=== PATIENT | male | born 1960 | race Caucasian/White ===

== ENCOUNTER 2017-01-26 16:12 | Emergency (ER) | payer MEDICARE, OTHER ==
[2017-01-26 16:31] VITALS: TEMP 98.9
--- NOTE | 2017-01-26 17:00 | ED ---
Lower Extremity Injury HPI - General Chief Complaint: Extremity Injury, Lower Stated Complaint: Ankle Pain, swollen Time Seen by Provider: 01/26/17 16:55 Source: patient, RN notes reviewed Mode of arrival: wheelchair Limitations: no limitations - History of Present Illness Initial Comments: 56-year-old male presents emergency Department chief complaint of right foot and ankle injury. Patient states that he went to the pool and irrigated it can a ball and landed onto his right foot. Patient states since he has pain. Patient states there is no other injuries. Patient denies any fever chills cough cold runny nose with this. Patient states she did not hit his head. Patient states he continued to have the pain to the foot so he thought that he should be evaluated. Patient denies any other symptoms at this time. Patient denies any recent fever, chills, shortness of breath, chest pain, back pain, abdominal pain, nausea vomiting, numbness or tingling, dysuria or hematuria, constipation or diarrhea, headaches or visual changes, or any other current symptoms. - Related Data Home Medications Medication Instructions Recorded Confirmed Aspirin 325 mg PO DAILY 05/09/16 06/04/16 Atorvastatin [Lipitor] 80 mg PO HS 05/09/16 06/06/16 Cholecalciferol [Vitamin D3] 5,000 unit PO DAILY 05/09/16 06/04/16 Krill Oil 500 mg PO DAILY 05/09/16 06/04/16 Lisinopril [Lisinopril] 10 mg PO QAM 05/09/16 06/04/16 Metoprolol Tartrate [Metoprolol 25 mg PO BID 05/09/16 06/06/16 Tartrate] Omeprazole 20 mg PO QAM 05/09/16 06/06/16 Prasugrel HCl [Effient] 10 mg PO DAILY 05/09/16 06/04/16 Vitamin B Complex 1 cap PO DAILY 05/09/16 06/04/16 glyBURIDE [Glyburide] 5 mg PO AC-[id number] 05/09/16 06/06/16 metFORMIN HCL [metFORMIN HCL] 1,000 mg PO DAILY 05/09/16 06/06/16 Previous Rx's Medication Instructions Recorded traMADol HCL [Ultram] 50 mg PO Q4HR PRN #8 tab 06/06/16 Allergies Allergy/AdvReac Type Severity Reaction Status Date / Time No Known Allergies Allergy Verified 06/04/16 15:14 Review of Systems ROS Statement: Those systems with pertinent positive or pertinent negative responses have been documented in the HPI. ROS Other: All systems not noted in ROS Statement are negative. 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 Neck: The neck is supple, there is no tenderness. Cardiovascular: There is a regular rate and rhythm. No murmur, rub or gallop is appreciated. Respiratory: Lungs are clear to auscultation, respirations are non-labored, breath sounds are equal. No wheezes, stridor, rales, or rhonchi. Musculoskeletal: Sensation intact with 2+ pulses. Extremity. Range of motion right knee and right ankle. Patient does appear to have some tenderness with patient the right ankle and along the posterior aspect of the right foot. There is minimal swelling noted and no ecchymosis or abrasion no skin trauma. Full range of motion of the right knee with no proximal tib-fib tenderness. Back: There is no midline tenderness to palpation. Full range of motion. Neurological: CN II-XII intact, There are no obvious motor or sensory deficits. Coordination appears grossly intact. Speech is normal. Skin: Skin is warm and dry and no rashes or lesions are noted. Psychiatric: Normal mood and affect. Limitations: no limitations Course Vital Signs 01/26/17 16:29 Temperature 98.9 F Pulse Rate 90 Respiratory 18 Rate Blood Pressure 144/77 O2 Sat by Pulse 97 Oximetry Procedures - Orthopedic Splinting/Casting Injury #1 Side: right Lower Extremity Injury Location: ankle Lower Extremity Immobilizer: stirrup splint (Short leg) Medical Decision Making - Medical Decision Making 56-year-old male presents emergency 5 chief complaint of right ankle pain after jumping into his pool today. This time patient underwent an x-ray. At this time patient's x-ray does show a fibular fracture. At this time patient was placed in a splint. We discussed care follow-up return parameters all patient' s questions. He stated he understood and he is in agreement with plan. He will be discharged. - Radiology Data Radiology results: report reviewed, image reviewed Disposition Clinical Impression: Right fibular fracture Disposition: HOME SELF-CARE Condition: Stable Instructions: Ankle Fracture (ED) Additional Instructions: Please use medication as discussed. Please follow up with family doctor if symptoms have not improved over the next two days. Please return to the emergency room if your symptoms increase or worsen or for any other concerns. Referrals: Gary Jimenez MD [Primary Care Provider] - 1-2 days Zhen Saini MD [STAFF PHYSICIAN] - 1-2 days Time of Disposition: 17:26
--- NOTE | 2017-01-26 17:18 | XR ---
EXAMINATION TYPE: XR ankle complete RT DATE OF EXAM: 01/26/2017 COMPARISON: NONE HISTORY: Pain TECHNIQUE: 3 views FINDINGS: There is a nondisplaced oblique fracture of the distal fibula. There is lateral soft tissue swelling. Ankle mortise is anatomic. There are plantar and Achilles calcaneal spurs. IMPRESSION: Acute nondisplaced fracture distal fibula.
--- NOTE | 2017-01-26 17:19 | XR ---
EXAMINATION TYPE: XR foot complete RT DATE OF EXAM: 01/26/2017 COMPARISON: NONE HISTORY: Pain TECHNIQUE: 3 views FINDINGS: There are plantar and Achilles calcaneal spurs. There is some spurring at talonavicular michaelle nt. Metatarsals are intact. IMPRESSION: Degenerative changes. No fracture seen.
[2017-01-26 17:34] VITALS: BP 138/69; PULSE 94; RESP 20
== END 2017-01-26 17:35 | disposition home or self-care (01) ==
LOC: EC 16:12
DX: S82.434A Nondisplaced oblique fracture of shaft of right fibula, initial encounter for closed fracture (principal); I10 Essential (primary) hypertension; E11.9 Type 2 diabetes mellitus without complications; K21.9 Gastro-esophageal reflux disease without esophagitis; I25.2 Old myocardial infarction; Z87.891 Personal history of nicotine dependence; Z79.82 Long term (current) use of aspirin; Z79.84 Long term (current) use of oral hypoglycemic drugs; Z79.899 Other long term (current) drug therapy; W16.012A Fall into swimming pool striking water surface causing other injury, initial encounter; Y92.34 Swimming pool (public) as the place of occurrence of the external cause; Y93.39 Activity, other involving climbing, rappelling and jumping off
CPT/HCPCS: 29515; 99283

== ENCOUNTER → 2017-03-12 | Outpatient (CLI) | payer OTHER ==
[2017-03-12 09:01] LABS: ALT 77 U/L (21-72); AST 43 U/L (17-59); Alkaline Phosphatase 87 U/L (38-126); Anion Gap 13 mmol/L; Blood Urea Nitrogen 18 mg/dL (9-20); Calcium 9.7 mg/dL (8.4-10.2); Carbon Dioxide 24 mmol/L (22-30); Chloride 102 mmol/L (98-107); Cholesterol 134 mg/dL (<200); Glucose 207 mg/dL (74-99); HDL Cholesterol 28 mg/dL (40-60); Non-African American GFR(MDRD) >60 (>60 ml/min/1.73 sqM); Potassium 4.7 mmol/L (3.5-5.1); Sodium 139 mmol/L (137-145); Total Bilirubin 0.6 mg/dL (0.2-1.3); Total Protein 7.1 g/dL (6.3-8.2)
== END | disposition home or self-care (01) ==
LOC: LABWHC1 08:15
PROVIDERS: ATTEND Internal Medicine Interventional Cardiology
DX: E78.2 Mixed hyperlipidemia (principal)
CPT/HCPCS: 36415; 80053; 80061

== ENCOUNTER 2017-08-12 06:52 | Day surgery (SDC) | payer OTHER ==
[2017-08-08 11:16] VITALS: BMI 40.6
[~2017-08-12 06:52] MED LIST: LACTATED RINGERS 1,000 ML IV SCH; LIDOCAINE 1% 20 ML VIAL (10MG/ML) FOR IV START INTRADERMA PRN
[2017-08-12 07:27] VITALS: TEMP 97.1
[2017-08-12 07:39] LABS: Glucose,Whole Blood 140 mg/dL (75-99)
[2017-08-12] MEDS ORDERED: LIDOCAINE 1% INJ 10MG/ML (20 ML MDV) ONE (07:44)
[2017-08-12] MEDS ORDERED: PROPOFOL 10 MG/ML 20 ML VIAL IV ONE (07:44)
--- NOTE | 2017-08-12 08:40 | P.OP ---
Date of Procedure: 08/12/17 Preoperative Diagnosis: Screening colonoscopy Postoperative Diagnosis: Same, polypoid changes at 20 cm, internal hemorrhoids Procedure(s) Performed: Colonoscopy with biopsies Anesthesia: MAC Surgeon: Silvia Gomez Estimated Blood Loss (ml): 0 Pathology: other (Biopsy polypoid change 2 at 20 cm) Condition: stable Disposition: PACU Indications for Procedure: Patient presents for screening colonoscopy Operative Findings: Polypoid changes at 20 cm 2 areas biopsied this appeared to be hyperplastic one slightly larger area was ablated with snare polypectomy there was no specimen to retrieve Description of Procedure: Patient was taken to the endoscopy suite and following sedation rectal exam was performed. Patient was noted to have good sphincter tone no masses. Colonoscope was passed through the anus into the rectum. Was passed through the sigmoid colon up to splenic flexure transverse colon hepatic flexure right colon down to the area of the cecum. Approximately 10 minutes were taken to remove the scope from the area of skin cecum to the rectum. No mucosal lesions of concern were noted in the cecum or right colon. No mucosal lesions of concern in the transverse colon left colon or sigmoid colon. At 20 cm some polypoid changes which appeared to be hyperplastic were identified. Cold biopsy was obtained of 2 of these areas. The third area which was slightly larger was obliterated using the snare polypectomy however there was no tissue to retrieve. Following this the scope continued to be withdrawn into the rectum. It was retroflexed in the rectum and internal hemorrhoids were identified. The complete mucosal detail somewhat difficult to evaluate secondary to a marginal bowel prep. However no gross lesions of concern were identified. Impression/plan: 1. Await results of biopsy 2. Internal hemorrhoids conservative management Plan: 1. Depending on results of biopsy if these changes are hyperplastic most likely repeat scope in 7-10 years if these are adenomatous then repeat scope in 1 year as there were several other areas that appeared similar in proximity at 20 cm.
[2017-08-12 09:03] VITALS: BP 104/56; PULSE 61; RESP 20
== END 2017-08-12 09:04 | disposition home or self-care (01) ==
LOC: ORWHC2ENDO 06:52
PROVIDERS: ATTEND Surgery
DX: Z12.11 Encounter for screening for malignant neoplasm of colon (principal); K63.5 Polyp of colon; K21.9 Gastro-esophageal reflux disease without esophagitis; K64.8 Other hemorrhoids; Z87.891 Personal history of nicotine dependence; I25.10 Atherosclerotic heart disease of native coronary artery without angina pectoris; I10 Essential (primary) hypertension; E11.9 Type 2 diabetes mellitus without complications; Z79.84 Long term (current) use of oral hypoglycemic drugs; I25.2 Old myocardial infarction; Z95.5 Presence of coronary angioplasty implant and graft; Z80.1 Family history of malignant neoplasm of trachea, bronchus and lung; Z79.899 Other long term (current) drug therapy
CPT/HCPCS: 88305; 45380; 45385; J2001; J2704

== ENCOUNTER → 2017-12-26 | Outpatient (CLI) | payer OTHER ==
[2017-12-26 08:51] LABS: Albumin 4.4 g/dL (3.5-5.0); Calcium 9.6 mg/dL (8.4-10.2); Total Bilirubin 0.6 mg/dL (0.2-1.3); Total Protein 7.3 g/dL (6.3-8.2)
== END | disposition home or self-care (01) ==
LOC: LABWHC1 08:08
PROVIDERS: ATTEND Internal Medicine Interventional Cardiology
DX: E78.2 Mixed hyperlipidemia (principal)
CPT/HCPCS: 36415; 80053; 80061

== ENCOUNTER → 2018-07-02 | Outpatient (CLI) | payer OTHER ==
[2018-07-02 15:58] LABS: Albumin 4.6 g/dL (3.80-4.90); Anion Gap 10.3 mmol/L (4.00-12.00); Calcium 9.7 mg/dL (8.7-10.3); Carbon Dioxide 26.7 mmol/L (21.6-31.8); Globulin 2.3 g/dL (2.1-3.7); LDL Cholesterol,Calculated 64.6 mg/dL (0.0-131.0); Potassium 4.8 mmol/L (3.5-5.5); Total Bilirubin 0.5 mg/dL (0.2-1.2); Total Protein 6.9 g/dL (6.2-8.2); VLDL Calculation 12.4 mg/dL (5.00-40.00)
== END | disposition home or self-care (01) ==
LOC: LABWHC1 08:11
PROVIDERS: ATTEND Internal Medicine Interventional Cardiology
DX: E78.2 Mixed hyperlipidemia (principal)
CPT/HCPCS: 36415; 80053; 80061

== ENCOUNTER → 2019-02-16 | Outpatient (CLI) | payer BC ==
--- NOTE | 2019-02-17 07:07 | US ---
EXAMINATION TYPE: US kidneys/renal and bladder DATE OF EXAM: 02/16/2019 COMPARISON: NONE CLINICAL HISTORY: N17.9 Acute kidney failure, unspecified. NORA, donated left kidney in 1979 EXAM MEASUREMENTS: Right Kidney: 14.3 x 6.6 x 7.0 cm Left Kidney: Surgically absent Right Kidney: No hydronephrosis or masses seen Left Kidney: Surgically absent Bladder: wnl Bilateral Jets seen: right seen There is no evidence for hydronephrosis at this point in time. No nephrolithiasis is seen. No catina s are identified. The urinary bladder is anechoic. Bilateral ureteral jets are seen. IMPRESSION: No hydronephrosis or nephrolithiasis of the right kidney. The left kidney is surgically absent. Urina ry bladder is unremarkable.
== END | disposition home or self-care (01) ==
LOC: RADUSWWP 15:30
PROVIDERS: ATTEND Family Medicine
DX: N17.9 Acute kidney failure, unspecified (principal); Z90.5 Acquired absence of kidney
CPT/HCPCS: 76770

== ENCOUNTER → 2019-03-05 | Outpatient (CLI) | payer BC ==
[2019-03-05 17:54] LABS: African American GFR (CKD) 69.7 (60.0-200.0); Albumin 4.3 g/dL (3.80-4.90); Albumin/Globulin Ratio 1.95 (1.60-3.17); Anion Gap 7.6 mmol/L (4.00-12.00); BUN/Creat Ratio 27.69 Ratio (12.00-20.00); Calcium 9.4 mg/dL (8.7-10.3); Carbon Dioxide 22.4 mmol/L (21.6-31.8); Globulin 2.2 g/dL (1.6-3.3); Total Bilirubin 0.4 mg/dL (0.3-1.2); Total Protein 6.5 g/dL (6.2-8.2)
== END | disposition home or self-care (01) ==
LOC: LABWHC1 07:59
PROVIDERS: ATTEND Nurse Practitioner Adult Health
DX: I10 Essential (primary) hypertension (principal); I25.10 Atherosclerotic heart disease of native coronary artery without angina pectoris; E78.2 Mixed hyperlipidemia
CPT/HCPCS: 36415; 80053; 80061

== ENCOUNTER → 2019-07-01 | Outpatient (CLI) | payer BC ==
[2019-07-01 16:49] LABS: Chol/HDL Ratio 3.39; LDL Cholesterol,Calculated 64.8 mg/dL (0.0-131.0); VLDL Calculation 14.2 mg/dL (5.00-40.00)
== END | disposition home or self-care (01) ==
LOC: LABWHC1 07:56
PROVIDERS: ATTEND Nurse Practitioner Adult Health
DX: E78.2 Mixed hyperlipidemia (principal)
CPT/HCPCS: 36415; 80061; 84450; 84460

== ENCOUNTER 2020-09-08 05:52 | Day surgery (SDC) | payer BC ==
[2020-09-05 11:03] VITALS: BMI 38.0
[~2020-09-08 05:52] MED LIST changes: -LACTATED RINGERS 1,000 ML IV SCH; -LIDOCAINE 1% 20 ML VIAL (10MG/ML) FOR IV START INTRADERMA PRN; +ceFAZolin 3 GM in SODIUM CHLORIDE 0.9% 100 ML IVPB PRN
[2020-09-08] MEDS ORDERED: SCOPOLAMINE 1.5MG/72HR PATCH TRANSDERM ONE (06:04)
[2020-09-08] MEDS ORDERED: DEXAMETHASONE SOD PHOSPHATE 4 MG/ML 1 ML VIAL IV ONE (06:04)
[2020-09-08] MEDS ORDERED: MIDAZOLAM 2 MG/2 ML VIAL IV PRN (06:04)
[2020-09-08] MEDS ORDERED: ONDANSETRON 4 MG/2 ML VIAL IVP ONE ×2 (06:04→10:23)
[2020-09-08] MEDS ORDERED: LACTATED RINGERS 1,000 ML IV SCH (06:04)
[2020-09-08] MEDS ORDERED: LACTATED RINGERS 1,000 ML IV ONE ×4 (06:24→11:04)
[2020-09-08 06:39] LABS: Glucose,Whole Blood 218 mg/dL (75-99)
[2020-09-08] MEDS ORDERED: HYDROmorphone 0.5 MG/0.5 ML SYRINGE IVP PRN (07:00)
[2020-09-08] MEDS ORDERED: MIDAZOLAM 2 MG/2 ML VIAL IVP ONE (07:01)
[2020-09-08] MEDS ORDERED: fentaNYL (PF) 50 MCG/ML 2 ML AMP IVP ONE (07:01)
[2020-09-08] MEDS ORDERED: INSULIN REGULAR 100 UNIT/ML VIAL SQ ONE (07:28)
[2020-09-08] MEDS ORDERED: LIDOCAINE 1% INJ 10MG/ML (20 ML MDV) ONE (07:33)
[2020-09-08] MEDS ORDERED: PROPOFOL 10 MG/ML 20 ML VIAL IV ONE (07:33)
[2020-09-08] MEDS ORDERED: MIDAZOLAM 2 MG/2 ML VIAL ONE (07:33)
[2020-09-08] MEDS ORDERED: SUCCINYLCHOLINE CHLORIDE VIAL 200 MG/10 ML VIAL IV ONE (07:33)
[2020-09-08] MEDS ORDERED: ROCURONIUM 10 MG/ML (5 ML VIAL) IV ONE (07:33)
[2020-09-08] MEDS ORDERED: PHENYLEPHRINE-0.9% NACL SYG 1,000 MCG/10 ML SYRINGE ONE (07:33)
[2020-09-08] MEDS ORDERED: HYDROmorphone (PF) 1 MG/ML ONE (07:33)
[2020-09-08] MEDS ORDERED: ROPIVACAINE 5 MG/ML 30 ML VIAL ONE (07:33)
[2020-09-08] MEDS ORDERED: fentaNYL (PF) 50 MCG/ML 2 ML AMP ONE (07:33)
--- NOTE | 2020-09-08 09:51 | P.ANPRN ---
Procedure Note - Anesthesia - Nerve Block Performed Left Popliteal Single Time Out Performed: Yes Date of Procedure: 09/08/20 Procedure Start Time: 07:00 Procedure Stop Time: 07:12 Location of Patient: PreOp Indication: Requested by Surgeon Specifically requested for management of pain by DrAlvino: Obdulio Rock Sedation Type: Sedate with meaningful contact maintained Preparation: Sterile Prep Position: Right Lateral Needle Types: Pajunk Needle Gauge: 21 Ultrasound used to visualize needle placement: Yes Ultrasound used to observe medication spread: Yes Injectate: 0.5% Ropivacaine (see comment for volume) (20 ml) Blood Aspirated: No Pain Paresthesia on Injection Noted: No Resistance on Injection: Normal Image Stored and Saved: Yes Events: Uneventful and Well Tolerated
--- NOTE | 2020-09-08 09:53 | P.ANPRN ---
Procedure Note - Anesthesia - Nerve Block Performed Left Adductor Canal Single Date of Procedure: 09/08/20 Procedure Start Time: :13 Procedure Stop Time: : Location of Patient: PreOp Indication: Requested by Surgeon Specifically requested for management of pain by DrAlvino: Obdulio Rock Sedation Type: Sedate with meaningful contact maintained Preparation: Sterile Prep Position: Supine Needle Types: Pajunk Needle Gauge: 21 Ultrasound used to visualize needle placement: Yes Ultrasound used to observe medication spread: Yes Injectate: 0.5% Ropivacaine (see comment for volume) (20 ml) Blood Aspirated: No Pain Paresthesia on Injection Noted: No Resistance on Injection: Normal Image Stored and Saved: Yes Events: Uneventful and Well Tolerated
[2020-09-08] MEDS ORDERED: KETOROLAC 15 MG/ML 1 ML VIAL IVP ONE (10:31)
[2020-09-08 10:35] VITALS: TEMP 96.8
[2020-09-08] MEDS ORDERED: INSULIN ASPART (NovoLOG) 100 UNIT/ML VIAL SQ ONE (10:43)
[2020-09-08 10:47] LABS: Glucose,Whole Blood 244 mg/dL (75-99)
[2020-09-08 11:55] VITALS: RESP 18
[2020-09-08 12:30] LABS: Glucose,Whole Blood 251 mg/dL (75-99)
[2020-09-08 13:13] VITALS: BP 91/57; PULSE 48
--- NOTE | 2020-09-08 13:40 | XR ---
Fluoroscopy INDICATION: Pain FINDINGS: Fluoroscopy time: Not provided. Images obtained: 3. IMPRESSIONS: 1. Documentation of fluoroscopy.
--- NOTE | 2020-09-08 13:54 | FL ---
Fluoroscopy INDICATION: Pain FINDINGS: Fluoroscopy time: 20 seconds. Images obtained: 0. IMPRESSIONS: 1. Documentation of fluoroscopy.
--- NOTE | 2020-09-13 16:20 | OP ---
OPERATIVE REPORT DATE OF SURGERY: September 08, 2020. PREOPERATIVE DIAGNOSES: 1. Acquired deformity of left foot. 2. Primary osteoarthritis of left foot. POSTOPERATIVE DIAGNOSES: 1. Acquired deformity of left foot. 2. Primary osteoarthritis of left foot. PROCEDURE: 1. Arthrodesis of multiple midtarsal joints, left foot. 2. Medial displacement calcaneal osteotomy, left foot. SURGEON: Obdulio Rock DPM ANESTHESIA: General with preoperative nerve block. HEMOSTASIS: Left mid calf tourniquet at 250 mmHg. ESTIMATED BLOOD LOSS: 10 mL. MATERIALS: One OsteoMed midtarsal fusion plate with associated screws; 3 mL of demineralized bone matrix putty and two 4.7 cannulated screws. INJECTABLES: None. SPECIMENS: None. COMPLICATIONS: None. OPERATIVE REPORT IS FOLLOWS: Prior to the patient being brought to the operating room, Anesthesia was administered, a popliteal nerve block and saphenous nerve block under ultrasound guidance and mild sedation. Then the patient was brought into the operating room and placed on the table in supine position. A time-out was taken to confirm correct patient identifiers, correct site of surgery and correct procedure. When everybody in the room was in agreement, the patient was placed under general anesthetic. A well-padded tourniquet was placed on the left ankle and a bump underneath the left hip to internally rotate the left leg. The left leg was then prepped and draped in usual manner. The leg was exsanguinated. The tourniquet inflated to 250 mmHg. Attention was directed on the posterior lateral calcaneus. Incision for a medial displacement calcaneal osteotomy was made between the Achilles attachment and peroneal tendons. A ashly was made underneath the skin while utilizing fluoroscopy, so that the proper placement of the osteotomy could be performed. Then, the incision was made through that same line, deepened down to the subcutaneous tissue, careful to identify and avoid and retract all neurovascular structures and cauterize any bleeding vessels. Dissection was then carried down to the periosteum at which point, the periosteum was incised and lightly reflected anteriorly and posteriorly. A sagittal saw blade was aligned properly and confirmed under fluoroscopy to make sure that was straight lateral to medial. The osteotomy was completed to the medial cortex and then osteotomes were used to finish the rest of the osteotomy and also loosen the soft tissue attachments. The posterior fragment was distracted at the osteotomy site to allow for easier movement. Once that was done, the fragment was shifted medially and once adequate fixation was then placed, a guidewire was then placed into the calcaneus to hold the fragment from shifting back laterally. Visually, the calcaneal fragment was more centralized along the long axis of the leg and so at that point guidewires for the cannulated screws were inserted in the posterior aspect of the calcaneus across the osteotomy utilizing fluoroscopic visualization. Once both pins were properly placed, a small stab incision was made through the skin at which point, the overdrill was performed and then the screws inserted across the guidewires and then were tightened until the threaded heads of the screws engaged the cortex of the calcaneus and then were buried and allowed for compression. The fluoroscopic imaging used for proper placement of the hardware with maintaining correction of the osteotomy. The wound was irrigated thoroughly with antibiotic saline. Subcutaneous closed with 4-0 Monocryl. Skin closure done with kyree. The bump was then removed from the left hip so that the leg would externally rotate and then attention was directed medially. A linear incision was made along the medial side of the talus, navicular and cuneiform. It was deepened down to the subcutaneous tissue careful to identify, avoid and retract any neurovascular structures and cauterizing the vessels. Blunt dissection was continued down to the capsular structures of the talonavicular and calcaneonavicular joints that was incised and then soft tissue reflected dorsally and plantarly to expose the entirety of the joints. Utilizing a Synthes joint prep kit, the articular cartilage was removed from the talus and the navicular down to bleeding subchondral bone. For the navicular cuneiform joint, an osteotomy was performed with the base oriented plantarly so that sagittal plane correction could be achieved. This went across to the intermediate cuneiform and its conjoining area of the navicular. Once that bony fragment was removed, the osteotomy was able to be reduced allowing for plantar flexion of the forefoot on the midfoot. Visually there was increase in the medial arch height. We were also able to correct some of the transverse plane deformity with adduction of the forefoot. The demineralized bone matrix putty was then placed between the arthrodesis segments and the foot was then again reduced at the same time maximally dorsiflexing the digits to create as much sagittal plane correction as possible and then a guidewire was placed across the arthrodesis sites to maintain the correction. A midtarsal fusion plate was then placed medially so that the drill holes were over the talus and cuneiform and spanned the navicular. They were temporarily fixated and fluoroscopy was used to make sure the plate was in proper alignment. Once that was determined, two locking screws were placed through the plate into the cuneiform to anchor the plate. The drill was then inserted in the compression slot which was angled to go in the direction of posterior and lateral so that it spanned all the arthrodesis segments. The drill was advanced under fluoroscopic visualization to guide into the body of the talus and then the drill bit was removed and the screw inserted and advanced until it engaged the plate and then it was noticeable that all the arthrodesis sites compressed. Once that was placed, fluoroscopic imaging was used to confirm that the reduction was maintained in that there was good bony contact at the arthrodesis sites and that the screw was properly placed and once that was determined, locking screws were placed into the talus completing the construct. The wound was thoroughly irrigated with antibiotic saline. Deep closure was done with 0 Vicryl. Subcutaneous closure done with 4-0 Monocryl. Skin closure done with kyree. Nonadherent gauze and a bulky dry dressing were applied to the incisions of the left foot and then the tourniquet was released and capillary refill returned to all digits of the left foot. The patient was then placed in a well-padded well-molded below-knee plaster posterior sugar-tong splint and as this was drying, it was held in ankle neutral dorsiflexion and plantar flexion and slight inversion. Then anesthesia was reversed and the patient was taken to recovery. The vital signs stable. MMODL / IJN: [id number] / ASHLIE
== END 2020-09-08 13:50 | disposition home or self-care (01) ==
LOC: OR 05:52
PROVIDERS: ATTEND Podiatrist
DX: M21.6X2 Other acquired deformities of left foot (principal); M19.072 Primary osteoarthritis, left ankle and foot; E11.9 Type 2 diabetes mellitus without complications; I11.9 Hypertensive heart disease without heart failure; E78.5 Hyperlipidemia, unspecified; I25.10 Atherosclerotic heart disease of native coronary artery without angina pectoris; K21.9 Gastro-esophageal reflux disease without esophagitis; E66.9 Obesity, unspecified; Z79.899 Other long term (current) drug therapy; Z79.84 Long term (current) use of oral hypoglycemic drugs; Z97.3 Presence of spectacles and contact lenses; Z85.821 Personal history of Merkel cell carcinoma; Z98.890 Other specified postprocedural states; Z87.891 Personal history of nicotine dependence; Z87.312 Personal history of (healed) stress fracture; Z68.38 Body mass index [BMI] 38.0-38.9, adult; Z79.82 Long term (current) use of aspirin; Z82.49 Family history of ischemic heart disease and other diseases of the circulatory system; W00.0XXA Fall on same level due to ice and snow, initial encounter
CPT/HCPCS: 64445; 64447; 64450; 76942

== ENCOUNTER → 2021-05-03 | Outpatient (CLI) | payer BC ==
--- NOTE | 2021-05-04 06:20 | XR ---
EXAMINATION TYPE: XR hand complete RT DATE OF EXAM: 05/03/2021 CLINICAL HISTORY: Small lump base of the thumb for 3 months. History of right forearm cancer in 2016. TECHNIQUE: Frontal, lateral and oblique images of the right hand are obtained. COMPARISON: None. FINDINGS: There is no acute fracture/dislocation evident in the right hand. Mild narrowing throughou t the PIP and DIP joints without significant spurring. Mild to moderate narrowing base of first metac arpal. No suspicious focal osseous expansile or destructive lesion. No suspicious osseous erosive james nges. The overlying soft tissue appears unremarkable. IMPRESSION: As above.
== END | disposition home or self-care (01) ==
LOC: RADXRMAIN 16:19
PROVIDERS: ATTEND Nurse Practitioner
DX: M25.841 Other specified joint disorders, right hand (principal)

== ENCOUNTER → 2021-06-01 | Outpatient (CLI) | payer BC ==
--- NOTE | 2021-06-04 06:49 | PE ---
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 Images are reviewed on the computer in the coronal, ax ial, and sagittal planes. Reconstructed rotating images are created on independent workstation and r eviewed on the computer. A localization and attenuation correction CT is performed in conjunction w ith the PET scan. SCAN: Subsequent Scan FINDINGS: SKULL BASE AND NECK: No areas of abnormal hypermetabolic uptake. CHEST, MEDIASTINUM, AND HILAR REGION: No areas of abnormal hypermetabolic uptake. ABDOMEN AND PELVIS: Nonspecific bowel uptake. Normal excretion right kidney. Left kidney surgically a bsent. No additional areas of abnormal hypermetabolic uptake. OSSEOUS STRUCTURES: No areas of abnormal hypermetabolic uptake. OTHER CT: Mild calcified plaque right carotid bulb. 3 vessel coronary artery calcification and/or sunil nts. Correlate clinically. Low lung volumes and mild cardiomegaly. Calcified nodules in the right low er axilla. Visualized liver is low dense consistent with diffuse fatty infiltration. A few sigmoid colonic diver ticula. IMPRESSION: No suspicious hypermetabolic masses to suggest recurrent and/or metastatic malignancy.
== END | disposition home or self-care (01) ==
LOC: RADPETMAIN 10:59
PROVIDERS: ATTEND Internal Medicine Hematology & Oncology
DX: Z85.821 Personal history of Merkel cell carcinoma (principal)
CPT/HCPCS: 78815; A9552

== ENCOUNTER 2021-10-10 04:50 | Emergency (ER) | payer BC ==
[2021-10-10 04:56] VITALS: TEMP 97.8
[2021-10-10 06:05] LABS: Basophils % (A) 0 %; Eosinophils # (A) 0.2 k/uL (0-0.7); Eosinophils % (A) 4 %; HCT 40.6 % (39.0-53.0); HGB 13.9 gm/dL (13.0-17.5); Lymphocytes # (A) 0.9 k/uL (1.0-4.8); Lymphocytes % (A) 13 %; MCH 31.9 pg (25.0-35.0); MCHC 34.2 g/dL (31.0-37.0); MCV 93.4 fL (80.0-100.0); Monocytes # (A) 0.5 k/uL (0-1.0); Monocytes % (A) 8 %; Neutrophils # (A) 4.6 k/uL (1.3-7.7); Neutrophils % (A) 72 %; Platelet Count 185 k/uL (150-450); RBC 4.34 m/uL (4.30-5.90); RDW 14.4 % (11.5-15.5); WBC 6.4 k/uL (3.8-10.6)
--- NOTE | 2021-10-10 06:14 | XR ---
EXAMINATION TYPE: XR chest 2V DATE OF EXAM: 10/10/2021 COMPARISON: 06/24/2013 HISTORY: Chest pain TECHNIQUE: FINDINGS: Heart is normal. There is no heart failure. There is no pulmonary consolidation. There is m ild pleural thickening on the right lateral chest wall. There are clips at the right axilla. No pleur al effusion. No heart failure. IMPRESSION: There is some mild pleural thickening right lateral chest wall. No heart failure or pulmo nary consolidation. Inspiration decreased compared to old exam.
[2021-10-10 06:21] LABS: INR 0.9 (<1.2); Prothrombin Time 10.2 sec (9.0-12.0)
[2021-10-10 06:23] LABS: Albumin 3.9 g/dL (3.5-5.0); Calcium 8.9 mg/dL (8.4-10.2); Magnesium 1.8 mg/dL (1.6-2.3); Potassium 4.6 mmol/L (3.5-5.1); Total Bilirubin 0.5 mg/dL (0.2-1.3); Total Protein 7.1 g/dL (6.3-8.2)
[2021-10-10 06:40] VITALS: BP 130/82; PULSE 72; RESP 16
--- NOTE | 2021-10-10 07:13 | ED ---
General Adult HPI - General Chief complaint: Upper Respiratory Infection Stated complaint: Rib Pain/SOB Time Seen by Provider: 10/10/21 05:12 Source: patient Mode of arrival: ambulatory Limitations: no limitations - History of Present Illness Initial comments: This patient's a 41-year-old man who presents to be evaluated for left-sided chest wall pain. Patient states that it has come on gradually over past 3-4 days. He has had cough that started a day or 2 before that. The pain has some pleuritic components worse when he takes cough or deep breath. Also worse with certain movements. Onset/Timin -: days(s) Location: chest Radiation: non-radiation Consistency: intermittent Improves with: none Worsens with: movement, other (Cough/ inspiration) Associated Symptoms: cough Treatments Prior to Arrival: none - Related Data Home Medications Medication Instructions Recorded Confirmed Atorvastatin [Lipitor] 80 mg PO HS 05/09/16 09/08/20 Cholecalciferol [Vitamin D3] 1,000 unit PO DAILY 05/09/16 09/08/20 Krill Oil 350 mg PO DAILY 05/09/16 09/08/20 Metoprolol Tartrate 25 mg PO DAILY 05/09/16 09/08/20 Omeprazole 20 mg PO QAM 05/09/16 09/08/20 glyBURIDE [Glyburide] 5 mg PO AC-[id number] 05/09/16 09/08/20 lisinopriL [Lisinopril] 5 mg PO QAM 05/09/16 09/08/20 metFORMIN HCL 1,000 mg PO BID 05/09/16 09/08/20 Empagliflozin [Jardiance] 25 mg PO QAM 08/08/17 09/08/20 Aspirin [Adult Low Dose Aspirin EC] 81 mg PO DAILY 09/05/20 09/08/20 Previous Rx's Medication Instructions Recorded HYDROcodone/APAP 7.5-325MG [[place] 2 tab PO Q6HR PRN 7 Days #40 tab 09/08/20 7.5-325] Ibuprofen 800 mg PO TID #20 tablet 10/10/21 Allergies Allergy/AdvReac Type Severity Reaction Status Date / Time No Known Allergies Allergy Verified 10/10/21 04:56 Review of Systems ROS Statement: Those systems with pertinent positive or pertinent negative responses have been documented in the HPI. ROS Other: All systems not noted in ROS Statement are negative. Constitutional: Denies: fever, chills Respiratory: Reports: as per HPI, cough. Denies: dyspnea, wheezes, hemoptysis Cardiovascular: Reports: as per HPI, chest pain. 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 Last Myocardial Infarction Date:: 06-24-13 History of Any Multi-Drug Resistant Organisms: None Reported Past Surgical History: Heart Catheterization With Stent Additional Past Surgical History / Comment(s): heart stent x2,loretta cell carcinoma removed 2015 and 2016 w/ lymph nodes removed,skin graft under rt a rm,kidney donor (unsure which kidney removed) Past Anesthesia/Blood Transfusion Reactions: No Reported Reaction Date of Last Stent Placement:: 06-25-13 Past Psychological History: No Psychological Hx Reported Smoking Status: Former smoker Past Alcohol Use History: Rare Past Drug Use History: None Reported - Past Family History Mother Family Medical History: No Reported History Father Family Medical History: Cancer Sister(s) Family Medical History: Cancer General Exam Limitations: no limitations General appearance: alert, in no apparent distress Head exam: Present: atraumatic, normocephalic Eye exam: Present: normal appearance. Absent: scleral icterus, conjunctival injection Neck exam: Present: normal inspection Respiratory exam: Present: normal lung sounds bilaterally. Absent: respiratory distress, wheezes, rales, rhonchi, stridor Cardiovascular Exam: Present: regular rate, normal rhythm, normal heart sounds. Absent: systolic murmur, diastolic murmur, rubs, gallop GI/Abdominal exam: Present: soft. Absent: distended, tenderness, guarding, rebound, rigid, mass Extremities exam: Present: normal inspection, normal capillary refill. Absent: pedal edema, calf tenderness Back exam: Present: normal inspection. Absent: CVA tenderness (R), CVA tenderne ss (L) Neurological exam: Present: alert Skin exam: Present: warm, dry, intact, normal color. Absent: rash Course Vital Signs 10/10/21 10/10/21 10/10/21 04:53 05:12 06:39 Temperature 97.8 F Pulse Rate 98 72 Respiratory 18 18 16 Rate Blood Pressure 178/91 130/82 O2 Sat by Pulse 98 98 Oximetry EKG Findings - EKG Results: EKG: interpreted by ERMD, sinus rhythm (Rate 80 bpm), normal axis, normal ST/T - Blocks, [place], Hypertrophy, ST Abn: AV and intraventricular conduction: intraventricular conduction delay Medical Decision Making - Lab Data Result diagrams: 10/10/21 05:57 10/10/21 05:57 Lab Results 10/10/21 10/10/21 10/10/21 Range/Units 05:57 05:57 05:57 WBC 6.4 (3.8-10.6) k/uL RBC 4.34 (4.30-5.90) m/uL Hgb 13.9 (13.0-17.5) gm/dL Hct 40.6 (39.0-53.0) % MCV 93.4 (80.0-100.0) fL MCH 31.9 (25.0-35.0) pg MCHC 34.2 (31.0-37.0) g/dL RDW 14.4 (11.5-15.5) % Plt Count 185 (150-450) k/uL MPV 7.0 Neutrophils % 72 % Lymphocytes % 13 % Monocytes % 8 % Eosinophils % 4 % Basophils % 0 % Neutrophils # 4.6 (1.3-7.7) k/uL Lymphocytes # 0.9 L (1.0-4.8) k/uL Monocytes # 0.5 (0-1.0) k/uL Eosinophils # 0.2 (0-0.7) k/uL Basophils # 0.0 (0-0.2) k/uL PT 10.2 (9.0-12.0) sec INR 0.9 (<1.2) APTT 25.0 (22.0-30.0) sec D-Dimer 0.49 (<0.60) mg/L FEU Sodium 137 (137-145) mmol/L Potassium 4.6 (3.5-5.1) mmol/L Chloride 106 (98-107) mmol/L Carbon Dioxide 22 (22-30) mmol/L Anion Gap 9 mmol/L BUN 25 H (9-20) mg/dL Creatinine 1.20 (0.66-1.25) mg/dL Est GFR (CKD-EPI)AfAm 75 (>60 ml/min/1.73 sqM) Est GFR (CKD-EPI)NonAf 65 (>60 ml/min/1.73 sqM) Glucose 228 H (74-99) mg/dL Calcium 8.9 (8.4-10.2) mg/dL Magnesium 1.8 (1.6-2.3) mg/dL Total Bilirubin 0.5 (0.2-1.3) mg/dL AST 22 (17-59) U/L ALT 31 (4-49) U/L Alkaline Phosphatase 95 (38-126) U/L Troponin I (0.000-0.034) ng/mL Total Protein 7.1 (6.3-8.2) g/dL Albumin 3.9 (3.5-5.0) g/dL Coronavirus (PCR) (Not Detectd) 10/10/21 10/10/21 Range/Units 05:57 05:57 WBC (3.8-10.6) k/uL RBC (4.30-5.90) m/uL Hgb (13.0-17.5) gm/dL Hct (39.0-53.0) % MCV (80.0-100.0) fL MCH (25.0-35.0) pg MCHC (31.0-37.0) g/dL RDW (11.5-15.5) % Plt Count (150-450) k/uL MPV Neutrophils % % Lymphocytes % % Monocytes % % Eosinophils % % Basophils % % Neutrophils # (1.3-7.7) k/uL Lymphocytes # (1.0-4.8) k/uL Monocytes # (0-1.0) k/uL Eosinophils # (0-0.7) k/uL Basophils # (0-0.2) k/uL PT (9.0-12.0) sec INR (<1.2) APTT (22.0-30.0) sec D-Dimer (<0.60) mg/L FEU Sodium (137-145) mmol/L Potassium (3.5-5.1) mmol/L Chloride (98-107) mmol/L Carbon Dioxide (22-30) mmol/L Anion Gap mmol/L BUN (9-20) mg/dL Creatinine (0.66-1.25) mg/dL Est GFR (CKD-EPI)AfAm (>60 ml/min/1.73 sqM) Est GFR (CKD-EPI)NonAf (>60 ml/min/1.73 sqM) Glucose (74-99) mg/dL Calcium (8.4-10.2) mg/dL Magnesium (1.6-2.3) mg/dL Total Bilirubin (0.2-1.3) mg/dL AST (17-59) U/L ALT (4-49) U/L Alkaline Phosphatase (38-126) U/L Troponin I <0.012 (0.000-0.034) ng/mL Total Protein (6.3-8.2) g/dL Albumin (3.5-5.0) g/dL Coronavirus (PCR) Not Detected (Not Detectd) Disposition Clinical Impression: Pleuritis Disposition: HOME SELF-CARE Condition: Good Instructions (If sedation given, give patient instructions): Upper Respiratory Infection (ED) Prescriptions: Ibuprofen 800 mg PO TID #20 tablet Is patient prescribed a controlled substance at d/c from ED?: No Referrals: Gary Jimenez MD [Primary Care Provider] - 1-2 days
== END 2021-10-10 08:54 | disposition home or self-care (01) ==
LOC: EC 04:50
DX: R07.81 Pleurodynia (principal); E11.9 Type 2 diabetes mellitus without complications; K21.9 Gastro-esophageal reflux disease without esophagitis; I10 Essential (primary) hypertension; I25.2 Old myocardial infarction; Z79.84 Long term (current) use of oral hypoglycemic drugs; Z79.82 Long term (current) use of aspirin; Z85.821 Personal history of Merkel cell carcinoma; Z87.891 Personal history of nicotine dependence; Z20.822 Contact with and (suspected) exposure to COVID-19
CPT/HCPCS: 36415; 71046; 80053; 83735; 84484; 85025; 85379; 85610; 85730; 87635; 93005; 99285